=== PATIENT | female | born 1975 | race Caucasian/White ===

== ENCOUNTER 2016-11-07 14:31 | Inpatient (IN) ==
[2016-11-07] MEDS ORDERED: Aspirin 81 MG TAB.CHEW PO ONE (14:52)
[2016-11-07] MEDS ORDERED: Ondansetron 4 MG/2 ML VIAL IVP ONE (15:01)
[2016-11-07 15:35] LABS: Basophils # 0.1 K/mcL (0.0-0.2); Basophils % 0.5 %; Eosinophils # 0.2 K/mcL (0.0-0.6); Eosinophils % 2.2 %; Hematocrit 41.9 % (35.3-44.9); Hemoglobin 13.9 g/dL (11.5-15.4); Immature Granulocytes % 0.8 % (0-4); Lymphocytes % 27.9 %; Mean Corpuscular HGB Conc 33.2 g/dL (31.6-35.5); Mean Corpuscular Hemoglobin 27.4 pg (28.0-33.3); Mean Corpuscular Volume 82.5 fL (83.0-100.0); Mean Platelet Volume 9.6 fL (9.4-12.4); Monocytes # 0.5 K/mcL (0.0-1.3); Monocytes % 4.4 %; Neutrophils # 6.9 K/mcL (1.6-8.9); Platelet Count 308 K/mcL (140-400); Red Blood Count 5.08 M/mcL (3.82-4.97); Red Cell Distribution Width 13.4 % (11.5-14.5); Segmented Neutrophils % 64.2 %
[2016-11-07] MEDS ORDERED: 0.9 % Sodium Chloride 2,000 ML ONE ×2 (16:10→16:38)
[2016-11-07] MEDS: Nitroglycerin 0.4 MG TAB.SUBL SL PRN ×3 (16:11→16:22)
[2016-11-07 16:16] LABS: BUN/Creatinine Ratio 16 (6-26); Blood Urea Nitrogen 10 mg/dL (7-20); Calcium 9.2 mg/dL (8.6-10.8); Carbon Dioxide 21 mEq/L (19-29); Chloride 103 mEq/L (98-109); Glucose 97 mg/dL (70-99); Osmolality,Calculated 277 (280-300); Potassium 4.1 mEq/L (3.5-4.5); Sodium 134 mEq/L (136-145); eGFR For African Americans > 60 (> 60); eGFR For Non-African Americans > 60 (> 60)
--- NOTE | 2016-11-07 16:18 | Emergency Department Note ---
Disposition Clinical Impression: ST elevation myocardial infarction (STEMI) Qualifiers: Involved coronary artery: unspecified coronary artery Qualified Code(s): I21.3 - ST elevation (STEMI) myocardial infarction of unspecified site Disposition: Admitted As Inpatient Condition: Critical Time of Disposition: 17:17 Chest Pain HPI - General Chief Complaint: ED Chest Pain Stated Complaint: chest pain Time Seen by Provider: 11/07/16 14:46 Source: EMS Vital Signs Reviewed: Yes Nursing Notes Reviewed: Yes - History of Present Illness HPI Narrative: Patient is a 41-year-old female who presents to [facility] ED with the chief complaint of chest pain. States her symptoms started approximately 1 hour prior to arrival around 1:45pm. This lasted for 10 minutes. Describes this as a substernal to right sided chest pressure that radiated into her right neck and right shoulder. Also had some nausea and diaphoresis. Denies any prior symptoms of this. She is otherwise healthy and is not on any medications. Patient states her father had a massive heart attack at age 49. Pt complaint: chest pain Onset (ago): hour(s) Duration: now resolved Pain Location: substernal Severity: severe Severity scale (1-10): 10 Quality: heaviness Pain Radiation: RUE, neck Improves with: nothing Worsens with: nothing Associated symptoms: Reports: nausea, diaphoresis, dyspnea Treatments prior to arrival chest pain: none - Related Data Home Medications Medication Instructions Recorded Confirmed No Known Home Drugs 11/07/16 11/07/16 Allergies Allergy/AdvReac Type Severity Reaction Status Date / Time codeine Allergy Swelling Verified 11/07/16 16:18 of Lip/Tongue/Throat Sulfa (Sulfonamide Allergy Swelling Verified 11/07/16 16:18 Antibiotics) of Lip/Tongue/Throat All systems ED: reviewed and negative except as stated. Chest Pain PMH - Past Medical History Medical history: Reports: no medical history Psychiatric history: Reports: no psych history - Social History Smoking Status: Never smoker Alcohol use: Reports: none Drug use: Reports: marijuana Physical Exam - General Limitations: no limitations General appearance: alert - Head Head exam: atraumatic, normocephalic, normal inspection - Eye Eye exam: Present: normal appearance, PERRL, EOMI - ENT ENT exam: normal exam, normal oropharynx, mucous membranes moist - Neck Neck exam: Present: normal inspection, full ROM, trachea midline - Chest Chest inspection: Present: normal inspection, symmetric chest wall rise - Respiratory Respiratory exam: Present: normal lung sounds bilaterally - Cardiovascular Cardiovascular exam: Present: regular rate, normal rhythm, normal heart sounds - Abdominal Exam Abdominal exam: Present: soft, Non-Tender. Absent: tenderness, distention, guarding, rebound, rigidity - Extremities Exam Extremities exam: Present: normal inspection, full ROM. Absent: tenderness, pedal edema - Back Exam Back exam: Present: normal inspection, full ROM. Absent: tenderness - Neurological Exam Neurological exam: Present: alert, oriented X3 - Psychiatric Psychiatric exam: Present: normal affect, normal mood - Skin Skin exam: Present: warm, dry, intact, normal color Course Course Narrative: Patient seen and examined. Chest pressure that is currently resolved. This is concerning for cardiac etiology as she also had episode of nausea and diaphoresis with this. It had radiated up into her neck and into her shoulder. Cardiac workup initiated. - Reevaluation(s) Reevaluation #1: Patient's troponin elevated at 0.06. Patient started developing chest pain again at 1604. We ordered a repeat EKG. She does appear to have some newer ST elevation in V1 and V2 as well as depression in the inferior leads. Patient is diaphoretic. STEMI alert was activated at 1608. I spoke with the interventionalist who had me send him the EKGs. Time: 16:23 Vital Signs Temperature 97.4 F L 11/07/16 14:35 Pulse Rate 70 11/07/16 14:35 Respiratory Rate 12 11/07/16 14:35 Blood Pressure 150/94 11/07/16 14:35 O2 Sat by Pulse Oximetry 96 11/07/16 14:35 Temperature 97.4 F L 11/07/16 14:35 Pulse Rate 63 11/07/16 16:51 Respiratory Rate 14 11/07/16 16:54 Blood Pressure 105/90 11/07/16 16:54 O2 Sat by Pulse Oximetry 98 11/07/16 16:51 Oxygen Delivery Oxygen Delivery Nasal Cannula Chest Pain - Medical Records Medical records reviewed: Yes I reviewed the patient's medical records. - Lab Data Lab results reviewed: Yes I reviewed the patient's lab results. Result diagrams: 11/07/16 15:10 11/07/16 15:56 Lab Results 11/07/16 11/07/16 11/07/16 Range/Units 15:10 15:10 15:10 WBC 10.8 (4.3-11.1) K/mcL RBC 5.08 H (3.82-4.97) M/mcL Hgb 13.9 (11.5-15.4) g/dL Hct 41.9 (35.3-44.9) % MCV 82.5 L (83.0-100.0) fL MCH 27.4 L (28.0-33.3) pg MCHC 33.2 (31.6-35.5) g/dL RDW 13.4 (11.5-14.5) % Plt Count 308 (140-400) K/mcL MPV 9.6 (9.4-12.4) fL Immature Gran % 0.8 (0-4) % Seg Neutrophils % 64.2 % Lymphocytes % 27.9 % Monocytes % 4.4 % Eosinophils % 2.2 % Basophils % 0.5 % Neutrophils # 6.9 (1.6-8.9) K/mcL Lymphocytes # 3.0 (0.6-4.6) K/mcL Monocytes # 0.5 (0.0-1.3) K/mcL Eosinophils # 0.2 (0.0-0.6) K/mcL Basophils # 0.1 (0.0-0.2) K/mcL PT (9.4-12.1) Seconds INR APTT (26.0-36.0) Seconds D-Dimer 357 (0-500) ng/mLFEU Sodium (136-145) mEq/L Potassium (3.5-4.5) mEq/L Chloride (98-109) mEq/L Carbon Dioxide (19-29) mEq/L BUN (7-20) mg/dL Creatinine (0.57-1.11) mg/dL Est GFR ( Amer) (> 60) Est GFR (Non-Af Amer) (> 60) BUN/Creatinine Ratio (6-26) Glucose (70-99) mg/dL Calculated Osmolality (280-300) Calcium (8.6-10.8) mg/dL Magnesium (1.6-2.6) mg/dL Troponin I 0.06 H* (0-0.03) ng/mL Specimen Rejected 11/07/16 11/07/16 11/07/16 Range/Units 15:10 15:42 15:56 WBC (4.3-11.1) K/mcL RBC (3.82-4.97) M/mcL Hgb (11.5-15.4) g/dL Hct (35.3-44.9) % MCV (83.0-100.0) fL MCH (28.0-33.3) pg MCHC (31.6-35.5) g/dL RDW (11.5-14.5) % Plt Count (140-400) K/mcL MPV (9.4-12.4) fL Immature Gran % (0-4) % Seg Neutrophils % % Lymphocytes % % Monocytes % % Eosinophils % % Basophils % % Neutrophils # (1.6-8.9) K/mcL Lymphocytes # (0.6-4.6) K/mcL Monocytes # (0.0-1.3) K/mcL Eosinophils # (0.0-0.6) K/mcL Basophils # (0.0-0.2) K/mcL PT 10.2 (9.4-12.1) Seconds INR 1.0 APTT 26.6 (26.0-36.0) Seconds D-Dimer (0-500) ng/mLFEU Sodium 134 L (136-145) mEq/L Potassium 4.1 (3.5-4.5) mEq/L Chloride 103 (98-109) mEq/L Carbon Dioxide 21 (19-29) mEq/L BUN 10 (7-20) mg/dL Creatinine 0.61 (0.57-1.11) mg/dL Est GFR ( Amer) > 60 (> 60) Est GFR (Non-Af Amer) > 60 (> 60) BUN/Creatinine Ratio 16 (6-26) Glucose 97 (70-99) mg/dL Calculated Osmolality 277 L (280-300) Calcium 9.2 (8.6-10.8) mg/dL Magnesium 1.8 (1.6-2.6) mg/dL Troponin I (0-0.03) ng/mL Specimen Rejected Hemolyzed - Radiology Data Radiology results reviewed: Yes I reviewed the patient's radiology results. - EKG Data EKG attestation: Yes I reviewed and interpreted this EKG. EKG results narrative: EKG done at 1444 shows sinus bradycardia with a rate of [address] elevation or depression. There is an inverted T-wave in lead 3. EKG done at 1605 shows normal sinus rhythm with a rate of 90 bpm. There are occasional PVCs. ST elevation noted at V1 and V2. There is also some ST depression in leads 2, 3, aVF. Heart Score - Score History: Highly Suspicious EKG: Significant ST-Depression Age: Less than 45 Risk Factors: 1-2 risk factors Troponin: 1-3x normal limit HEART Score Total: 6 Critical Care Time Critical Care Time: Yes Total Critical Care Time: 35 Attestation: Critical care time to manage patient's chest pain, and developing STEMI was 35 minutes. This was exclusive of any billable procedures. Attestation Statement - Attestation Attestation: Patient was seen with resident physician. I reviewed the history, physical, assessment and plan, and agree with the findings. I also personally evaluated this patient and had [id number] time with this patient. 41-year-old female presents emergency Department with 10 minute episode of chest pain nausea vomiting and diaphoresis. Patient states that she developed right-sided chest pain radiating into her neck into her shoulder was a pressure-like sensation was associated with diaphoresis that lasted approximately 10 minutes and resolved spontaneously. At time of initial evaluation patient states that she was feeling okay and the pain had dissipated. She has no significant risk factors other than having a family history of heart disease and her father had a heart attack in a relatively young age. She is not complaining of any shortness of breath or abdominal pain at this time. On examination ENT is unremarkable heart and lungs are normal chest wall is nontender. Abdomen is soft and nontender extremities showed no abnormalities. A chest pain workup was begun with an initial EKG showing no acute changes. Approximately an hour and 30 minutes after patient's arrival lab called to notify us that her troponin was positive at 0.06, and almost at the same time the patient developed another episode of right-sided chest pain associated with diaphoresis and nausea. A repeat EKG was taken immediately and was found have ST segment elevation in the anterior leads with reciprocal depression this was new from the EKG we had just taken an hour or so prior. Based on the patient's symptomatology description of pain and EKG changes STEMI activation was initiated. Interventional cardiology was notified. Patient had been given aspirin on arrival they did not recommend additional medications at this time we will the patient was in the emergency department. She was given nitroglycerin to help with her chest pain and it was helping a little bit. Patient was taken to the [facility] for definitive management. I agree with the resident physician assessment and plan. Critical care time for this patient was 35 minutes.
[2016-11-07] MEDS ORDERED: *HR* Midazolam HCl 2 MG/2 ML VIAL ONE (16:37)
[2016-11-07] MEDS ORDERED: *HR* Heparin 10,000 UNIT/10 ML VIAL ONE (16:38)
[2016-11-07] MEDS ORDERED: Nitroglycerin 1,000 MCG/10 ML VIAL IV ONE (16:38)
[2016-11-07] MEDS ORDERED: *HR* FentaNYL (PF) 100 MCG/2 ML VIAL ONE (16:38)
[2016-11-07] MEDS ORDERED: Heparin 1,000 UNITS/500 mL NS 500 ML ONE (16:38)
[2016-11-07] MEDS ORDERED: Verapamil 5 MG/2 ML VIAL ONE (16:39)
[2016-11-07 16:42] LABS: Prothrombin Time 10.2 Seconds (9.4-12.1)
[2016-11-07 16:44] LABS: Activated Partial Thrombo Time 26.6 Seconds (26.0-36.0)
[2016-11-07 16:45] LABS: Magnesium 1.8 mg/dL (1.6-2.6)
[2016-11-07] MEDS ORDERED: 0.9 % Sodium Chloride 250 ML ONE (17:22)
[2016-11-07] MEDS ORDERED: Ondansetron 4 MG/2 ML VIAL IVP PRN (17:56)
[2016-11-07] MEDS ORDERED: Abciximab 9 MG in 0.9 % Sodium Chloride 250 ML IVC SCH (18:00)
--- NOTE | 2016-11-07 18:05 | Cardiology History & Physical ---
Date of Encounter: 11/07/16 Time of Encounter: 17:00 Assessment and Plan (1) ST elevation myocardial infarction (STEMI) Current Visit: Yes Status: Acute Successful PCI of proximal to mid LAD with a single drug-eluting stent Serial cardiac enzymes Two-dimensional echo tomorrow Aspirin and Plavix Start JOSE inhibitor and beta godfrey therapy Start statin Patient needs education regarding lifestyle modification Qualifiers: Involved coronary artery: LAD coronary artery Qualified Code(s): I21.02 - ST elevation (STEMI) myocardial infarction involving left anterior descending coronary artery History of Present Illness Chief complaint: Chest pain HPI: Ms. Nuñez is a 41 year old female who has a strong family history of coronary artery disease with a father who had his first heart attack at age 23 and then subsequently of another heart attack at age 49. Other than family history , the patient does have a history of obesity and marijuana use, but does not carry a diagnosis of hypertension, hyperlipidemia, or diabetes mellitus. She states that she was in her usual state of health until this morning. She received a phone call that her grandkids were in town, and she states she needed to get her place clean. She immediately developed severe retrosternal chest pain graded 10 out of 10 associated with diaphoresis nausea and dyspnea. The pain went to the base of the neck, but was not radiating down the arm. Given her family history, she knew that she should go immediately to the emergency room. Her first EKG reportedly showed nonspecific changes, and she was pain-free. An hour so after her admission to the ER, she had recurrence of chest pain, and this time an EKG showed new changes with ST elevation in V1 and V2 with diffuse ST changes and T-wave inversion. These changes were different from the EKG that been obtained at admission. Based on this, the cardiac catheterization lab was mobilized. Past Med Surg Social Fam HX - Past Medical History Medical history: no medical history Psychiatric history: no psych history - Past Surgical History Surgical History: non-contributory - Social History Smoking Status: Never smoker Smokeless Tobacco Status: No Alcohol use: none Drug use: marijuana - Family History Father Hx Family Cardiac Disorders: Yes (MS at 23, at 49 from MS) Medications and Allergies No Known Home Drugs 11/07/16 [History] Allergies codeine Allergy (Verified 11/07/16 16:18) Swelling of Lip/Tongue/Throat Sulfa (Sulfonamide Antibiotics) Allergy (Verified 11/07/16 16:18) Swelling of Lip/Tongue/Throat All Systems Review: A 10-system review of systems was performed and is negative for pertinent findings except as documented above in the HPI. - Cardiovascular Cardiovascular: as per HPI, diaphoresis, dyspnea at rest, radiating jaw, neck or arm pain - Respiratory Respiratory: dyspnea Physical Examination Vital Signs, Last 4 Hours Pulse Resp BP Pulse Ox 11/07/16 16:54 14 105/90 11/07/16 16:51 63 14 98 11/07/16 16:44 56 14 134/95 98 11/07/16 16:37 70 14 126/110 98 11/07/16 16:33 68 16 121/78 96 11/07/16 16:27 72 14 129/116 95 General: Conversant, No Apparent Distress HEENT: Atraumatic, Normocephaly, Mucus Membranes Moist Neck: No JVD, Normal carotid pulses Cardiac: Reg Rate and Rhythm, Normal S1 and S2, No Murmur Lungs: Normal Breath Sounds, No Wheeze, Rales, Rhonchi Neuro: Alert and responsive, No focal deficits noted Abdomen: Soft, Non-Tender Musculoskeletal: No Chest Wall Tenderness Extremities: No Clubbing, No Cyanosis, No Edema, Normal Pulses Results 11/07/16 15:10 11/07/16 15:56
--- NOTE | 2016-11-07 18:07 | Invasive Diagnostic Lab Proc ---
Name: Kenya Nuñez Date of Study: 11/07/2016 Date: 1975 Ht: 61.8in Medical Record#: [id number] Age: 41 Wt: 209.44lb Gender: Female BSA: 1.95 Order #: [id number] BMI: 38.54 Physicians Procedure Physician: Juanita Osman MD Referring MD: Referring MD: Staff Name Position Time In [facility] RT (R) Monitor 05:06 PM Meggan Gomez RT Scrub 05:06 PM Che Castillo RN Process Safety Manager 05:06 PM Indications Indication STEMI Procedures Performed Procedure PRQ CARD REVASC GA 1 VSL L HRT ARTERY/VENTRICLE ANGIO Pre-Procedure Checklist Informed consent is complete signed and on chart. H\\T\\P is on chart. ID band is on and ID verified with patient. Patient NPO for procedure The procedure was described for the patient and questions were answered. Blood Pressure: 126/92 ECG is on chart. Rhythm: NSR Plan of Care Patient will tolerate the procedure without complications. Adequate level of comfort will be maintained. Hemodynamics will remain stable Patient will recover from procedure without complications. Respiratory function will be maintained. Cardiac rhythm will remain stable. Patient temperature will be maintained. Patient and/or family have verbalized understanding of the procedure. Patient Education Chief Complaint/Reason for Test: Cardiac Cath Developmental Category: Adult (18-64 years) Developmentally Appropriate for Age: Yes Learning Barriers: None Education Needs: Procedure Education Method: Verbal Information Taught: Cardiac Cath Educational Evaluation: Able to repeat information Intravenous Access Time IV Size Location DC'd Fluid/Drip Rate Units RN 05:10 PM 18g 1 1" Patent On Arrival Rt Antecubital Che Castillo RN 18g 1 1/4" Patent On Arrival Lt Antecubital 0.9NaCl 25 ml/hr Che Castillo RN Allergies SULFA (sulfonamide) codeine Acetaminophen Oxycodone CODEINE, PERCOCET Vital Signs Time BP (mmHg) HR (bpm) O2 Sat. RR (bpm) LOC 05:07 PM / % 5 = Fully awake and oriented or at pre-proc level 05:07 PM / % 4 = Oriented but drowsy 05:22 PM / % 4 = Oriented but drowsy 05:37 PM / % 4 = Oriented but drowsy 05:05 PM 126 / 92 67 100 % 12 05:10 PM 120 / 76 58 100 % 18 05:15 PM 124 / 67 73 99 % 26 05:20 PM 130 / 64 67 100 % 20 05:26 PM 162 / 107 99 100 % 21 05:30 PM 170 / 107 75 99 % 7 05:37 PM 163 / 82 66 % 18 05:41 PM 146 / 85 65 % 17 05:45 PM 138 / 69 62 100 % 20 Procedural Medications Time Medication Dose Units Method Given By 05:06 PM Oxygen 2 L/min nasal cannula Che Castillo RN 05:06 PM Versed 2 mg Intravenous Che Castillo RN 05:07 PM Fentanyl 50 mcg Intravenous Che Castillo RN 05:07 PM Lidocaine 2% 2 ml Subcutaneous Juanita Osman MD 05:09 PM Lidocaine 2% 1 ml Subcutaneous Juanita Osman MD 05:12 PM 05:21 PM 05:21 PM Reopro Bolus: 11 ml Intracoronary juanita osman md 05:31 PM Nitroglycerin 200 mcg Intracoronary juanita osman md 05:34 PM Fentanyl 50 mcg Intravenous Che Castillo RN 05:37 PM Reopro 9mg/250ml D5W: 14 ml Intravenous Che Castillo RN 05:41 PM Nitroglycerin 200 mcg Intracoronary juanita osman md 05:47 PM Plavix 600 mg Orally Che Castillo RN ASA Classification: CLASS II- Mild systemic disease (i.e. well-controlled diabetes, hypertension, asthma, cigarette smoking) Pantera Score Preprocedure Postprocedure Activity 2- Moves 4 extremities sustained head lift Activity 2- Moves 4 extremities sustained head lift Circulation 2- SBP +/= 20 points of pre-anesthetic level Circulation 2- SBP +/= 20 points of pre-anesthetic level Consciousness 2- Awake and alert oriented x 3 Consciousness 2- Awake and alert oriented x 3 O2 Saturation 2- Able to maintain O2 satruation of 92% on room air O2 Saturation 2- Able to maintain O2 satruation of 92% on room air Respiratory 2- Able to deep breathe and cough well Respiratory 2- Able to deep breathe and cough well Total Score 10 Total Score 10 Contrast Agent: Isovue Diagnostic Contrast: 169 ml Total Contrast: 169 ml Fluoro Dose: 1109 mGy Activated Clotting Time Time Seconds to Clot 05:37 PM 393 Procedure Log Time Note Enter By 04:55 PM 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 at 16:55 tsites 05:05 PM Vitals capture started with the following parameters, Patient=Adult, Interval=5 min, Initial Kzmbcsxr=653 mmHg, Deflation Rate=5 mmHg, Cuff placed on Left Arm 05:05 PM CathStat 05:05 PM HR=67 bpm, BVPP=066/92 mmhg, SbF7=354.0 %, Resp=12 B/min 05:06 PM Morena Hobbs RT (R) Position: Monitor Time in: 17: tsites 05:06 PM Meggan Gomez RT Position: Scrub Time in: 17: tsites 05:06 PM Che Castillo RN Position: Process Safety Manager Time in: 17: tsites 05:06 PM Patient charges- Angio tray pack, Navilyst 3mm J, Pulse Oximetry and ACIST tubing and transducer tsites 05:06 PM Case Delayed No tsites 05:06 PM Physician arrived 17: tsites 05: PM Meet and greet completed tsites 05: PM Sign in performed according to hospital policy. tsites 05:06 PM Procedure start 17: tsites 05: PM Time: 17:06 Oxygen on at 2 L/min per nasal cannula by Che Castillo RN tsites 05: PM Hair removed from procedure site in procedure lab using clippers. Right wrist and groin prepped with Chloraprep by Morena Hobbs (R) then patient draped. Skin intact. tsites 05: PM Time: 17:06 Versed 2 mg Intravenous Given by Che Castillo RN tsites : PM Time out performed according to hospital policy tsites : PM Time: 17:07 Fentanyl 50 mcg Intravenous Given by Che Castillo RN tsites : PM Time: 17:07 Patient comfortable and pain free: Yes tsites 05: PM Time: 17:07LOC: 5 = Fully awake and oriented or at pre-proc level tsites 05:07 PM Clinical Presentation: STEMI or equivalent tsites 05:07 PM Time: 17:07 2 ml Lidocaine 2% to right radial Subcutaneous Given by Juanita Osman MD tsites 05:09 PM Unsuccessful access attempt # 1 into the right Radial artery. Manual pressure applied to achieve hemostasis.. tsites 05:09 PM Time: 17:09 1 ml Lidocaine 2% to right radial Subcutaneous Given by Juanita Osman MD tsites 05:10 PM HR=58 bpm, VTRS=412/76 mmhg, RvQ3=722 %, Resp=18 B/min 05:10 PM Access obtained by percutaneous puncture. 5Fr 10cm Terumo Glidesheath sheath placed in right Radial artery. [id number] tsites 05:13 PM Time: 17:12 Heparin 4000 units Intravenous Given by juanita omsan md tsites 05:13 PM 0.035 260cm Navilyst 3mmJ wire [id number] tsites 05:13 PM 5Fr TIG catheter inserted over the wire [facility] tsites 05:14 PM Pressure channel 2 zeroed. 05:14 PM Recorded ECG: HR=66 Condition=Condition 1 05:14 PM Wire removed tsites 05:15 PM RCA angiography performed in multiple views. tsites 05:15 PM HR=73 bpm, TSZJ=359/67 mmhg, SpO2=99.0 %, Resp=26 B/min 05:17 PM LCA angiography performed in multiple views. tsites 05:17 PM Catheter removed tsites 05:19 PM Recorded Pressure: LV, HR=69, Condition=Condition 1 (Left Ventricle) LV 127/12/24 05:20 PM 5Fr Pigtail catheter inserted over the wire [facility] tsites 05:20 PM Catheter selectively placed in left ventricle tsites 05:20 PM Recorded Pressure: LV, Ao, HR=86, Condition=Condition 1 (Left Ventricle) LV 117/26/36, (Aorta) Ao 119/44/95 05:20 PM HR=67 bpm, GRXY=492/64 mmhg, CoX1=840.0 %, Resp=20 B/min 05:20 PM Bolus angiogram of left Ventricle complete: 10 ml/sec for a total of 30 mls tsites 05:21 PM Catheter removed tsites 05:21 PM Coronary Dominance: right tsites 05:21 PM PCI Status Emergency tsites 05:21 PM PCI Indication: Immediate PCI for STEMI tsites 05:21 PM Time: 17:21 Heparin 2000 units Intravenous Given by Che Castillo RN tsites 05:22 PM Time: 17:07 Patient comfortable and pain free: Yes tsites 05:22 PM Time: 17:07LOC: 4 = Oriented but drowsy tsites 05:23 PM PCI lesion in Proximal LAD. Pre Stenosis: 90 Pre KARTHIK Flow: tsites 05:23 PM 6Fr JL3.5 Runway guide catheter was used to cannulate the PCI vessel successfully. reused? No tsites 05:23 PM .014 Prowater 182cm guide wire across target lesion- successful. reused? No tsites 05:23 PM Inflation device was opened. tsites 05:26 PM 2.0 mm x 15 mm Emerge Monorail balloon across target lesion- successful. reused? No tsites 05:26 PM Balloon inflated @ 10 javier for 12 seconds tsites 05:26 PM HR=99 bpm, CRBY=344/107 mmhg, TwQ4=995.0 %, Resp=21 B/min 05:28 PM Balloon inflated @ 10 javier for 15 seconds tsites 05:29 PM Time: 17:21 Reopro Bolus: 11 ml Intracoronary Given by juanita osman md Rubio pump tsites 05:30 PM HR=75 bpm, EMGC=612/107 mmhg, SpO2=99 %, Resp=7 B/min 05:31 PM Time: 17:31 Nitroglycerin 200 mcg Intracoronary Given by juanita osman md tsites 05:31 PM Recorded Pressure: Ao, HR=71, Condition=Condition 1 (Aorta) Ao 171/72/128 05:32 PM 3.0 mm x 20 mm Emerge Monorail balloon across target lesion- successful. reused? No tsites 05:34 PM Balloon inflated @ 15 javier for 20 seconds tsites 05:34 PM Time: 17:34 Fentanyl 50 mcg Intravenous Given by Che Castillo RN tsites 05:35 PM Balloon catheter removed intact. tsites 05:35 PM 3.5mm x 24mm Synergy bioabsorbable stent across target lesion- successful Lot #[id number] tsites 05:37 PM Stent deployed @ 12 javier for 8 seconds tsites 05:37 PM Time: 17:22LOC: 4 = Oriented but drowsy tsites 05:37 PM At 17:37 the ACT was 393 seconds. tsites 05:37 PM Stent delivery system removed intact. tsites 05:37 PM HR=66 bpm, SZSL=621/82 mmhg, Resp=18 B/min 05:38 PM Time: 17:37 Reopro 9mg/250ml D5W: 14 ml Intravenous Given by Che Castillo RN Rubio pump tsites 05:40 PM 3.5 mm x 20mm NC Emerge balloon across target lesion- successful. reused? No tsites 05:40 PM Recorded Pressure: Ao, HR=68, Condition=Condition 1 (Aorta) Ao 125/80/100 05:41 PM HR=65 bpm, VPRK=867/85 mmhg, Resp=17 B/min 05:41 PM Balloon inflated @ 12 javier for 10 seconds tsites 05:42 PM Time: 17:41 Nitroglycerin 200 mcg Intracoronary Given by juanita osman md tsites 05:44 PM Recorded Pressure: Ao, HR=70, Condition=Condition 1 (Aorta) Ao 123/69/92 05:44 PM Guide wire removed intact. tsites 05:44 PM Lesion found in Mid LAD. Pre Stenosis: 50 Pre KARTHIK Flow: tsites 05:45 PM Lesion found in Mid RCA. Pre Stenosis: 40 Pre KARTHIK Flow: tsites 05:45 PM HR=62 bpm, PMAJ=210/69 mmhg, TsS5=298.0 %, Resp=20 B/min 05:47 PM Time: 17:47 Plavix 600 mg Orally Given by Che Castillo RN tsites 05:48 PM Procedure completed at 17:48 tsites 05:48 PM Sign out completed: Radiation Dose 1109 mGy Fluoro Time: 8.0 Isovue 370 - 200ml contrast 169 ml given by Juanita Osman MD. Complications: NoneConfirmed administered medications: Yes tsites 05:48 PM Isovue 370 - 500ml,1 Bottle(s) used. tsites 05:48 PM Arterial sheath pulled, Vasc Band closure device used and was Successful S/N. tsites 05:48 PM 15 ml air in Vasc Band. tsites 05:49 PM Post ECG NSR tsites 05:49 PM Post Blood Pressure 138/69 tsites 05:49 PM 17:49 Post Pulses Rt Radial 1+ tsites 05:49 PM Information taught Cardiac Cath, PCI, and Vasc Band tsites 05:49 PM Education needs Procedure, Plan of Care, and Responsibilities of Patient in Care tsites 05:49 PM Learning barriers :None tsites 05:49 PM Education Methods Verbal tsites 05:49 PM Education evaluation Able to repeat information tsites 05:49 PM Site status No bleeding/hematoma - Rt Wrist as reported by Meggan Gomez RT at 17:49 tsites 05:50 PM Plavix, Effient or Brilinta given Yes tsites 05:50 PM Delay to floor No tsites 05:50 PM Family placed in consult room. tsites 05:50 PM Vitals capture stopped. 05:53 PM Time: 17:37LOC: 4 = Oriented but drowsy tsites 05:53 PM Complications: None tsites 06:00 PM Report given to victorina CORTES Pt taken to ICU Room #8. 18:00 tsites 06:00 PM Delay to floor No tsites 06:02 PM Patient out of room: 18:02 tsites Complications Complication None None Hemodynamics Pressures Site Systolic/A Wave Diastolic/V Wave Mean LV 127 12 24 LV 117 26 36 AO 119 44 95 AO 171 72 128 AO 125 80 100 AO 123 69 92 Post Procedure Information Blood Pressure: 138/69 mmHg Rhythm: NSR Post procedural instructions were given Closure Device Time Device Success/Fail 11/07/2016 5:54:00 PM Mechanical Compression Successful Site Checks Time Location Status Staff Sheath In? Note 05:49 PM Rt Wrist No bleeding/hematoma Meggan Gomez RT Pulses Time Site Pre-Procedure Post-Procedure Note 11/07/2016 5:10:00 PM Bilateral DP \\T\\ PT 2+ Bilateral radial 2+ 5:49:00 PM Rt Radial 1+ Updated by Morena Faby RT (R) on 11/07/2016 6:01:23 PM Morena Faby RT electronically signed on 11/07/2016 6:01:43 PM with status of Final
--- NOTE | 2016-11-07 18:20 | Invasive Diagnostic Lab ---
Name: Kenya Nuñez Date of Study: 11/07/2016 Date: 1975 Ht: 157.0 cm /61.8 in Medical Record#: [id number] Age: 41 Wt: 95. kg / 209.44 lb Account/Order#: [id number] Gender: Female BSA: 1.95 Order #: [id number] Fluoro Dose: 1109 mGy BMI: 38.54 Procedure Physician: Frantz Osman MD Referring MD: Referring MD: Procedures Performed: PCI of Acute NE LEFT HEART CATH Indications: STEMI Impressions: There is severe one vessel coronary artery disease. The left ventricle has mild hypokinesis along anterolateral wall with EF 45% Patient had successful PTCA/Drug-Eluting Stent placement in the proximal LAD. Recommendations: Optimal medical therapy of patient's disease. Aggressive risk factor modification. History/Risk Factors: stemi Family History of CAD Procedure Access obtained in the right Radial artery by percutaneous puncture Patient had successful PTCA/Drug-Eluting Stent placement in the proximal LAD. Complications: None, None Contrast: Isovue 169ml Closure Device: Mechanical Compression Hemodynamics: Pressures Site Systolic/ A Wave Diastolic/ V Wave End Diastolic/ Mean HR LV 127 12 24 69 LV 117 26 36 99 AO 119 44 95 72 AO 171 72 128 71 AO 125 80 100 68 AO 123 69 92 70 LV Ventriculography Ejection Method: LV Gram Ejection Fraction: 45% Wall Motion: VILLA Anterobasal Normal Anterolateral Mild Hypokinesis Apical: Normal Inferoapical Normal Inferobasal Normal Coronary Dominance: right Lesion Findings/Interventions * Left Main Coronary Artery The LMCA is angiographically free of disease. * Left Anterior Descending There is a 22 mm long, 99% stenosis in the Proximal LAD. The lesion has a KARTHIK flow of 2 and has thrombus present. An intervention was performed on the Proximal LAD with a final stenosis of 0%. There were no lesion complications. The final KARTHIK flow was 3. There is a 50% stenosis in the Mid LAD. * Circumflex The Circumflex is angiographically free of disease. The 1st Marginal is angiographically free of disease. * Right Coronary Artery There is a 40% stenosis in the Mid RCA. Interventional Device(s) Vessel Segment Type Name Diameter (mm) Length (mm) Proximal LAD balloon Emerge Monorail 2 15 Proximal LAD balloon Emerge Monorail 3 20 Proximal LAD bioabsorbable stent Synergy 3.5 24 Proximal LAD balloon NC Emerge 3.5 20 Updated by RT Radha (R) on 11/07/2016 6:13:43 PM Frnatz Osman MD electronically signed on 11/07/2016 6:16:39 PM with status of Final
[2016-11-08 03:22] LABS: Basophils % 0.3 %; Eosinophils # 0.3 K/mcL (0.0-0.6); Eosinophils % 2.2 %; Hematocrit 36.3 % (35.3-44.9); Hemoglobin 11.9 g/dL (11.5-15.4); Immature Granulocytes % 0.8 % (0-4); Lymphocytes # 4.3 K/mcL (0.6-4.6); Lymphocytes % 38.5 %; Mean Corpuscular HGB Conc 32.8 g/dL (31.6-35.5); Mean Corpuscular Hemoglobin 26.9 pg (28.0-33.3); Mean Corpuscular Volume 81.9 fL (83.0-100.0); Mean Platelet Volume 9.1 fL (9.4-12.4); Monocytes # 0.6 K/mcL (0.0-1.3); Monocytes % 5.4 %; Platelet Count 294 K/mcL (140-400); Red Blood Count 4.43 M/mcL (3.82-4.97); Red Cell Distribution Width 13.5 % (11.5-14.5); Segmented Neutrophils % 52.8 %
[2016-11-08 03:31] LABS: Hemoglobin A1C 5.5 %
[2016-11-08 03:36] LABS: Alanine Aminotransferase 10 Units/L (0-55); Albumin 2.9 g/dL (3.5-5.0); Albumin/Globulin Ratio 0.7 (1.1-2.2); Alkaline Phosphatase 70 Units/L (38-126); Aspartate Amino Transferase 11 Units/L (5-34); BUN/Creatinine Ratio 15 (6-26); Bilirubin,Direct 0.1 mg/dL (0.0-0.5); Bilirubin,Indirect 0.1 mg/dL (0.0-1.2); Bilirubin,Total 0.2 mg/dL (0.2-1.2); Blood Urea Nitrogen 10 mg/dL (7-20); Calcium 8.7 mg/dL (8.6-10.8); Carbon Dioxide 22 mEq/L (19-29); Chloride 105 mEq/L (98-109); Chol/HDL Ratio 10.3 (0-4.9); Cholesterol 341 mg/dL (< 200); Globulin 3.9 g/dL (2.4-3.5); Glucose 96 mg/dL (70-99); HDL Cholesterol 33 mg/dL (40-59); LDL Cholesterol,Calculated 248 mg/dL (0-99); Osmolality,Calculated 283 (280-300); Potassium 3.7 mEq/L (3.5-4.5); Sodium 137 mEq/L (136-145); Total Protein 6.8 g/dL (6.0-8.3); Triglycerides 298 mg/dL (< 150); eGFR For African Americans > 60 (> 60); eGFR For Non-African Americans > 60 (> 60)
[2016-11-08 03:57] LABS: Thyroid Stimulating Hormone 2.422 mcIU/mL (0.350-4.840)
[2016-11-08] MEDS ORDERED: Aspirin 81 MG TAB.CHEW PO SCH (09:00)
--- NOTE | 2016-11-08 09:24 | Cardiology Progress Note ---
Date of Encounter: 11/08/16 Time of Encounter: 09:22 Assessment and Plan (1) ST elevation myocardial infarction (STEMI) Current Visit: Yes Status: Acute Successful PCI of proximal to mid LAD with a single drug-eluting stent. Patient is in normal sinus rhythm without any ST changes this morning. Patient is in no acute distress. Plan: - Patient to continue on daily aspirin 81 mg, atorvastatin 40 mg by mouth at bedtime, Coreg 3.125 mg by mouth twice a day, Plavix 75 mg by mouth daily. - Dietary modifications and adequate exercise has been discussed with the patient. - Patient to be transferred from the ICU to general medical floor - Patient will follow-up with cardiology post discharge. - Echocardiogram scheduled for today with results pending. Qualifiers: Involved coronary artery: LAD coronary artery Qualified Code(s): I21.02 - ST elevation (STEMI) myocardial infarction involving left anterior descending coronary artery (2) Hyperlipidemia Current Visit: Yes Status: Acute Patient admitted for first STEMI without history of coronary artery disease prior to this current event. Lipid panel was drawn that demonstrated triglycerides of 298, cholesterol 341, LDL 248, VLDL of 60, HDL of 33, cholesterol HDL ratio of 10.3 Plan: - Dietary modifications were discussed with the patient - Continue atorvastatin 40 mg by mouth at bedtime - Close follow-up with PCP and cardiology. Qualifiers: Qualified Code(s): E78.5 - Hyperlipidemia, unspecified Discussion w patient/family: The assessment and plan as outlined above was discussed with the patient and/or family members who expressed understanding and agreement. All questions were answered. Thank you for involving us in the care of your patient. Please call with any questions. Subjective Principal diagnosis: STEMI Interval history: Mrs. Nuñez is status post drug-eluting stent to the LAD 11/07/2016, she is awake alert interactive and in no acute distress. She denies any pain including chest pain chest tightness diaphoresis, abdominal pain, nausea, vomiting, diarrhea or constipation. She says she is feeling much better compared to yesterday. She denies any history of coronary artery disease or other cardiac history. She does have a father who had his first heart attack at the age of 23 and in his 40s from an [place]. 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 She says she walks 3-7 miles per day and tries to stay quite active. She denies any smoking of cigarettes but does smoke marijuana. I discussed the importance of dietary change, medical compliance, close follow-up with cardiology post discharge. The patient demonstrates understanding. Objective Vital Signs, Last 4 Hours Temp Pulse Resp BP Pulse Ox 11/08/16 09:12 85 16 140/71 96 11/08/16 08:38 68 16 104/58 96 11/08/16 07:22 97.0 F L 11/08/16 07:19 73 16 128/62 94 L 11/08/16 06:00 75 148/79 95 General: Conversant, No Apparent Distress HEENT: Atraumatic, Normocephaly, Mucus Membranes Moist Neck: No JVD, Normal carotid pulses Cardiac: Reg Rate and Rhythm, Normal S1 and S2, No Murmur Lungs: Normal Breath Sounds, No Wheeze, Rales, Rhonchi Neuro: Alert and responsive, No focal deficits noted Abdomen: Soft, Non-Tender, Other (Obese abdomen) Skin: No rashes noted on visualized skin Musculoskeletal: No Chest Wall Tenderness Extremities: No Clubbing, No Cyanosis, No Edema, Normal Pulses Results 11/08/16 03:14 11/08/16 03:14 Lab Results 11/07/16 11/08/16 11/08/16 18:28 03:14 03:14 WBC 11.3 H Hgb 11.9 D Hct 36.3 Plt Count 294 Sodium 137 Potassium 3.7 Chloride 105 Carbon Dioxide 22 BUN 10 Creatinine 0.65 Glucose 96 Calcium 8.7 Total Bilirubin 0.2 AST 11 ALT 10 Alkaline Phosphatase 70 Troponin I 0.57 H* TSH 2.422 Consult Discharge Plan - Plan Referrals: Jeannette hCristian MD [Primary Care Provider] -
[2016-11-08] MEDS ORDERED: Ondansetron 4 MG/2 ML VIAL IVP PRN (13:00)
[2016-11-08] MEDS ORDERED: Nitroglycerin 0.4 MG TAB.SUBL SL PRN (13:00)
--- NOTE | 2016-11-08 15:02 | Electrocardiograph Report ---
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
--- NOTE | 2016-11-08 15:04 | Electrocardiograph Report ---
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
--- NOTE | 2016-11-08 15:06 | Electrocardiograph Report ---
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
[2016-11-09] MEDS ORDERED: Aspirin 81 MG TAB.CHEW PO SCH (09:00)
--- NOTE | 2016-11-09 09:08 | ECHO - Doppler Report ---
Echocardiogram Name: Kenya Nuñez Date of Study: 11/08/2016 Date: 1975 Ht: 62.0 in Medical Record#: [id number] Age: 41 Wt: 241.0 lb Gender: Female BSA: 2.07 Order #: [id number] Location: [facility] Room #: IC8 Reading Physician: Sherine Edouard DO Cord Cutter: Chantal Castillo Ordering Physician: Frantz Osman MD Primary Physician: Jeannette Christian MD Indications: ACS Impressions: LVEF 60%. Normal left ventricular size and systolic function. Normal diastolic function of the left ventricle. Normal right ventricular size and function. Mild mitral regurgitation. Estimated RVSP was 21 mmHg. No pulmonary hypertension. Left Ventricular Wall Motion: Rest Echo Findings All wall segments showed normal motion. Findings: Study Quality * Technically adequate exam. ECG Findings * Normal sinus rhythm. Left Ventricle * LVEF 60%. * Normal LV chamber size, wall thickness and function. * Normal left ventricular diastolic function. Left Atrium * Normal left atrial size. Mitral Valve * Normal mitral valve structure. * No mitral stenosis. * Mild mitral regurgitation. Tricuspid Valve * Tricuspid valve not well visualized. * No tricuspid regurgitation. * Estimated RA pressure is 3 mmHg. * Estimated RVSP is 21 mmHg. * No pulmonary hypertension. Pulmonic Valve * Pulmonic valve is not well visualized. * No pulmonic stenosis. * No pulmonic regurgitation. Pulmonary Artery * Pulmonary artery not well visualized. Aortic Valve * Aortic valve not well visualized. * No aortic regurgitation. * No aortic stenosis. Right Ventricle * Normal right ventricular structure and function. Right Atrium * Normal right atrial size. Interatrial Septum * No evidence of PFO by color Doppler. Aorta * Normally sized aortic root. Pericardium * There is no pericardial effusion present. IVC * Normal IVC dimensions and inspiratory collapse. History Hypertension Hypercholesteremia Family History of CAD History of CAD/PTCA Myocardial Infarction Measurements: BP: 119/ 77 2D Normal Values IVSd: 1.10 cm 0.6 - 1.0 cm LVIDd: 5.30 cm 3.7 - 5.6 cm LVPWd: 1.10 cm 0.6 - 1.1 cm LVIDs: 3.00 cm 1.5 - 3.6 cm AO: 2.90 cm < 4.0 cm LA: 3.90 cm 2.0 - 4.0cm %FS: 43.40 cm >25 % LA volume: 66 Mitral Valve Peak E:.90 m/sec Peak A:.74 m/sec E/A Ratio:1.2 Peak E' Lat Leo:12.7 cm/s Peak E' Med Leo:9.26 cm/s E/E' Lat Ratio:7.1 E/E' Med Ratio:9.8 Tricuspid Valve TV Regurg Peak Grad: 18.00mmHg TV Regurg Peak Leo: 2.10m/sec Updated by Sherine Edouard on 11/09/2016 9:01:37 AM electronically signed on 11/09/2016 9:02:54 AM with status of Final Wall Motion Knight: 1=Normal, 2=Hypokinesis, 3=Akinesis, 4=Dyskinesis, 5=Aneurysmal, 6=Hyperkinetic, X=Not Visualized (Blank)=Missing
--- NOTE | 2016-11-09 09:56 | Cardiology Progress Note ---
Date of Encounter: 11/09/16 Time of Encounter: 09:56 Assessment and Plan (1) ST elevation myocardial infarction (STEMI) Current Visit: Yes Status: Acute Successful PCI of proximal to mid LAD with a single drug-eluting stent. Patient is in normal sinus rhythm. Patient is in no acute distress. Echocardiogram 11/08/2016: LVEF 60%, Normal left ventricular size and function, Normal diastolic dysfunction, Normal right ventricular size and function. mild mitral regurgitation, Estimated RVSP 21mmHg, No pulmonary hypertension. Plan: - Patient to continue on daily aspirin 81 mg, atorvastatin 40 mg by mouth at bedtime, Coreg 3.125 mg by mouth twice a day, Plavix 75 mg by mouth daily. - Dietary modifications and adequate exercise has been discussed with the patient. - Patient will follow-up with cardiology post discharge. Qualifiers: Involved coronary artery: LAD coronary artery Qualified Code(s): I21.02 - ST elevation (STEMI) myocardial infarction involving left anterior descending coronary artery (2) Hyperlipidemia Current Visit: Yes Status: Acute Patient admitted for first STEMI without history of coronary artery disease prior to this current event. Lipid panel was drawn that demonstrated triglycerides of 298, cholesterol 341, LDL 248, VLDL of 60, HDL of 33, cholesterol HDL ratio of 10.3 Plan: - Dietary modifications were discussed with the patient - Continue atorvastatin 40 mg by mouth at bedtime - Close follow-up with PCP and cardiology. Qualifiers: Qualified Code(s): E78.5 - Hyperlipidemia, unspecified Discussion w patient/family: The assessment and plan as outlined above was discussed with the patient and/or family members who expressed understanding and agreement. All questions were answered. Thank you for involving us in the care of your patient. Please call with any questions. Subjective Principal diagnosis: STEMI Interval history: Mrs. Nuñez is status post drug-eluting stent to the LAD 11/07/2016, she is awake alert interactive and in no acute distress. She denies any pain including chest pain chest tightness diaphoresis, abdominal pain, nausea, vomiting, diarrhea or constipation. Her only complaint is a headache she has had for days prior to coming in. She says the headache is dull and improves with tylenol but has not resolved completely. She has not had any other symptoms. She has questions regarding returning to work, increasing her activity level and receiving a tattoo while on Plavix. She has tolerated oral intake and moving her bowels and urinating appropriately. Objective Vital Signs, Last 4 Hours Temp Pulse Resp BP Pulse Ox 11/09/16 07:40 98.1 F 11/09/16 07:00 54 16 130/55 94 L General: Conversant, No Apparent Distress HEENT: Atraumatic, Normocephaly, Mucus Membranes Moist Neck: No JVD, Normal carotid pulses Cardiac: Reg Rate and Rhythm, Normal S1 and S2, No Murmur Lungs: Normal Breath Sounds, No Wheeze, Rales, Rhonchi Neuro: Alert and responsive, No focal deficits noted Abdomen: Soft, Non-Tender Skin: No rashes noted on visualized skin Musculoskeletal: No Chest Wall Tenderness Extremities: No Clubbing, No Cyanosis, No Edema, Normal Pulses Results 11/08/16 03:14 11/08/16 03:14 Consult Discharge Plan - Plan Referrals: Jeannette Christian MD [Primary Care Provider] -
[2016-11-09 11:30] VITALS: BP 123/72
--- NOTE | 2016-11-09 11:32 | Discharge Summary ---
Date of Encounter: 11/09/16 Time of Encounter: 11:27 - Discharge Diagnosis (1) ST elevation myocardial infarction (STEMI) Priority: Primary Status: Acute Qualifiers: Involved coronary artery: LAD coronary artery Qualified Code(s): I21.02 - ST elevation (STEMI) myocardial infarction involving left anterior descending coronary artery (2) Hyperlipidemia Priority: Secondary Status: Acute Qualifiers: Qualified Code(s): E78.5 - Hyperlipidemia, unspecified - Discharge Medications Prescriptions: Nitroglycerin 0.4 mg SL Q5MIN PRN #5 tab.subl PRN Reason: Chest Pain Aspirin 81 mg PO DAILY #90 tab.chew Atorvastatin [Lipitor] 40 mg PO HS #30 tablet Carvedilol [Coreg] 3.125 mg PO BIDWM 30 Days Clopidogrel [Plavix] 75 mg PO DAILY #30 tablet Losartan [Cozaar] 25 mg PO DAILY #30 tablet Home Medications: Aspirin 81 mg PO DAILY #90 tab.chew 11/09/16 [Rx] Atorvastatin [Lipitor] 40 mg PO HS #30 tablet 11/09/16 [Rx] Carvedilol [Coreg] 3.125 mg PO BIDWM 30 Days 11/09/16 [Rx] Clopidogrel [Plavix] 75 mg PO DAILY #30 tablet 11/09/16 [Rx] Losartan [Cozaar] 25 mg PO DAILY #30 tablet 11/09/16 [Rx] Nitroglycerin 0.4 mg SL Q5MIN PRN #5 tab.subl 11/09/16 [Rx] Allergies/Adverse Reactions: Allergies codeine Allergy (Verified 11/07/16 16:18) Swelling of Lip/Tongue/Throat Sulfa (Sulfonamide Antibiotics) Allergy (Verified 11/07/16 16:18) Swelling of Lip/Tongue/Throat Procedures/tests Complete & Pending: Procedures Performed prior 72 hours Category Date Time Status CL Cardiac Catheterization [CL] Stat Scholarship Counselor 11/07/16 16:36 Completed ECG 12 lead ECG [ECG] Routine Y 11/07/16 17:56 Completed ECG 12 lead ECG [ECG] Routine Y 11/08/16 07:00 Ordered ECG 12 lead ECG [ECG] Stat Y 11/07/16 17:56 Completed EV echocardiogram Routine Y 11/08/16 17:56 Completed Date of admission: 11/07/16 16:25 Primary care physician: Jeannette Christian MD Consults: 11/07/16 17:56 Consult to Cardiac Rehabilitation-Phase1 [CONS] Routine Comment: Reason for Consult: AMI Call Completed: Yes Consult to Nurse Navigator [CONS] Routine Comment: 11/08/16 14:47 Consult to Gas Load Dispatcher [CONS] Routine Reason for SW Consult: NEEDS ASSISTANCE WITH MEDICATIONS UPON DISCHARGE. WILL BE DISCHARGED TOMORROW 11/09/16 Discharging clinician: Christophe Fischer Anticipated date of discharge: 11/09/16 - Patient Status Disposition: Home, Self-Care Condition: Good Functional capacity at discharge: independent ambulation Overall status at discharge: patient is progressing back to baseline - Discharge Instructions Instructions: Myocardial Infarction (DC) Follow Up With: Jeannette Christian MD [Primary Care Provider] - Heron Pimentel MD [Partnered Physician] - Additional Instructions: Activity level: No more than walking until approved after Cardiology follow up appointment after discharge. Take prescriptions as prescribed. - Diet and Activity Activity: return to work once cleared by your PCP/specialist Diet: low fat, low cholesterol - Hospital Course Hospital course: Ms. Nuñez is a 41 year old female with no known prior medical history was admitted on 11/07/2016 for STEMI and underwent successful PCI of proximal to mid LAD with a single drug-eluting stent. Post procedure she was stabilized in the ICU prior to step down to telemetry. She remained in normal sinus rhythm throughout her stay. Laboratory results demonstrated Hyperglycemia and hypercholesteremia. Patient has a significant family history with a father having MS at the age of 23 and from an MS in his 40's. Life style modifications, exercise and medical compliance were discussed with the patient. Patient was deemed stable for discharge on . Prescriptions were printed and provided to the patient at the time of discharge. Patient to follow up with cardiology and PCP post discharge. Echocardiogram 11/08/2016: LVEF 60%, Normal left ventricular size and function, Normal diastolic dysfunction, Normal right ventricular size and function. mild mitral regurgitation, Estimated RVSP 21mmHg, No pulmonary hypertension. - Time Spent with Patient Total time spent providing and/or coordinating discharge services: Physical Examination Vital Signs, Last 4 Hours Temp 11/09/16 07:40 98.1 F General: Conversant, No Apparent Distress HEENT: Atraumatic, Normocephaly, Mucus Membranes Moist Neck: No JVD, Normal carotid pulses Cardiac: Reg Rate and Rhythm, Normal S1 and S2, No Murmur Lungs: Normal Breath Sounds, No Wheeze, Rales, Rhonchi Neuro: Alert and responsive, No focal deficits noted Abdomen: Soft, Non-Tender Skin: No rashes noted on visualized skin Musculoskeletal: No Chest Wall Tenderness Extremities: No Clubbing, No Cyanosis, No Edema, Normal Pulses
== END 2016-11-09 12:17 | disposition home or self-care (01) | DRG 174 ==
LOC: EMEROO 14:31 → ICNU 16:25 → 2ANU 11-09 09:06
PROVIDERS: ADMIT Internal Medicine Interventional Cardiology; ATTEND Internal Medicine Interventional Cardiology

== ENCOUNTER 2017-03-12 23:16 | Observation (INO) ==
[2017-03-12] MEDS ORDERED: Aspirin 81 MG TAB.CHEW PO ONE (23:37)
[2017-03-12] MEDS ORDERED: Nitroglycerin 0.4 MG TAB.SUBL SL ONE (23:48)
[2017-03-12 23:55] LABS: Basophils % 0.3 %; Eosinophils # 0.2 K/mcL (0.0-0.6); Eosinophils % 1.6 %; Hematocrit 39.3 % (35.3-44.9); Immature Granulocytes % 0.5 % (0-4); Lymphocytes # 4.3 K/mcL (0.6-4.6); Lymphocytes % 36.1 %; Mean Corpuscular HGB Conc 33.1 g/dL (31.6-35.5); Mean Corpuscular Hemoglobin 27.6 pg (28.0-33.3); Mean Corpuscular Volume 83.4 fL (83.0-100.0); Mean Platelet Volume 9.3 fL (9.4-12.4); Monocytes # 0.6 K/mcL (0.0-1.3); Monocytes % 4.9 %; Neutrophils # 6.7 K/mcL (1.6-8.9); Platelet Count 335 K/mcL (140-400); Red Blood Count 4.71 M/mcL (3.82-4.97); Red Cell Distribution Width 13.9 % (11.5-14.5); Segmented Neutrophils % 56.6 %
[2017-03-13 00:05] LABS: Prothrombin Time 10.7 Seconds (9.4-12.1)
[2017-03-13 00:07] LABS: Activated Partial Thrombo Time 30.8 Seconds (26.0-36.0)
[2017-03-13 00:13] LABS: BUN/Creatinine Ratio 20 (6-26); Blood Urea Nitrogen 14 mg/dL (7-20); Calcium 9.2 mg/dL (8.6-10.8); Carbon Dioxide 26 mEq/L (19-29); Chloride 105 mEq/L (98-109); Glucose 118 mg/dL (70-99); Osmolality,Calculated 294 (280-300); Potassium 3.5 mEq/L (3.5-4.5); Sodium 141 mEq/L (136-145); eGFR For African Americans > 60 (> 60); eGFR For Non-African Americans > 60 (> 60)
--- NOTE | 2017-03-13 00:26 | Emergency Department Note ---
Disposition Clinical Impression: NSTEMI (non-ST elevated myocardial infarction) Disposition: Admitted As Inpatient Condition: Fair Referrals: Unassigned,Provider [Non-Partnered Physician] - Forms: ED Satisfaction Letter Time of Disposition: 01:36 Chest Pain HPI - General Chief Complaint: ED Chest Pain Stated Complaint: chest pain Time Seen by Provider: 03/12/17 23:42 Source: patient Mode of arrival: private vehicle Limitations: no limitations Vital Signs Reviewed: Yes Nursing Notes Reviewed: Yes - History of Present Illness HPI Narrative: Very pleasant 42-year-old female patient presents to the emergency department complaining of chest pain. Patient states the pain began approximately 4 hours prior to arrival. Patient does note a significant amount of lifestyle stressors over the last week. Patient does report that in October of this year she was diagnosed with a heart attack, underwent cardiac catheterization with one stent placement. Patient states that she had greater than 90% blockage of the site. She also notes that she had multivessel blockages but were not greater than 50% and did not require stent placement. Patient has a strong family cardiac history of early . Patient states that although this pain does feel similar to her previous heart attack it is on the contralateral side. She denies any recent illnesses. She denies any fever, chills, nausea or vomiting. She denies any dizziness or lightheadedness. She denies any shortness of breath. She denies any energy drinks. Pt complaint: chest pain Onset (ago): hour(s) (4) Duration: constant Onset: during rest Pain Location: right chest Severity: mild, moderate Severity scale (1-10): 3 Quality: sharp Pain Radiation: back Improves with: nothing Worsens with: nothing Context: other (History of previous [place]) Associated symptoms: Denies: nausea, vomiting, diaphoresis, dyspnea, sense of impending doom Treatments prior to arrival chest pain: none - Related Data Home Medications Medication Instructions Recorded Confirmed Aspirin 81 mg PO DAILY 03/13/17 03/13/17 Atorvastatin [Lipitor] 40 mg PO HS 03/13/17 03/13/17 Clopidogrel [Plavix] 75 mg PO DAILY 03/13/17 03/13/17 Lisinopril [Zestril] 5 mg PO DAILY 03/13/17 03/13/17 Nitroglycerin 0.4 mg SL DAILY 05/14/17 05/14/17 Allergies Allergy/AdvReac Type Severity Reaction Status Date / Time codeine Allergy Swelling Verified 11/07/16 16:18 of Lip/Tongue/Throat Sulfa (Sulfonamide Allergy Swelling Verified 11/07/16 16:18 Antibiotics) of Lip/Tongue/Throat All systems ED: reviewed and negative except as stated. Constitutional: Denies: fever, chills Cardiovascular: Reports: chest pain. Denies: palpitations, dyspnea on exertion , syncope Respiratory: Denies: cough, dyspnea Gastrointestinal: Denies: abdominal pain, nausea, vomiting Musculoskeletal: Denies: back pain, neck pain Integumentary: Denies: rash, abrasion, lesions Neurological: Denies: headache Psychiatric: Denies: anxiety, depression, suicidal thoughts, homicidal thoughts Chest Pain PMH - Past Medical History Medical history: Reports: myocardial infarction Surgical history: Reports: non-contributory Psychiatric history: Reports: no psych history - Social History Smoking Status: Never smoker Alcohol use: Reports: none Drug use: Reports: marijuana Physical Exam - General Limitations: no limitations General appearance: alert, in no apparent distress - Head Head exam: atraumatic, normocephalic, normal inspection - Eye Eye exam: Present: normal appearance, PERRL - Neck Neck exam: Present: normal inspection, full ROM, trachea midline - Chest Chest inspection: Present: normal inspection, symmetric chest wall rise - Respiratory Respiratory exam: Present: normal lung sounds bilaterally. Absent: respiratory distress - Cardiovascular Cardiovascular exam: Present: regular rate, normal rhythm, normal heart sounds - Expanded Lower Extremity Exam Gait: observed and normal - Back Exam Back exam: Present: normal inspection, full ROM. Absent: tenderness - Neurological Exam Neurological exam: Present: alert, oriented X3 - Psychiatric Psychiatric exam: Present: normal affect, normal mood Course Vital Signs Temperature 97.7 F 03/12/17 23:23 Pulse Rate 79 03/12/17 23:23 Respiratory Rate 18 03/12/17 23:23 Blood Pressure 127/88 03/12/17 23:23 O2 Sat by Pulse Oximetry 95 03/12/17 23:23 Temperature 97.7 F 03/12/17 23:23 Pulse Rate 89 03/13/17 00:38 Respiratory Rate 17 03/13/17 00:38 Blood Pressure 110/72 03/13/17 00:38 O2 Sat by Pulse Oximetry 93 03/13/17 00:38 Oxygen Delivery Oxygen Delivery Room Air Chest Pain - Differential Diagnosis Likely: chest pain - Medical Records Medical records reviewed: Yes I reviewed the patient's medical records. - Lab Data Lab results reviewed: Yes I reviewed the patient's lab results. Result diagrams: 03/12/17 23:49 03/12/17 23:49 Lab Results 03/12/17 03/12/17 03/12/17 Range/Units 23:49 23:49 23:49 WBC 11.9 H (4.3-11.1) K/mcL RBC 4.71 (3.82-4.97) M/mcL Hgb 13.0 (11.5-15.4) g/dL Hct 39.3 (35.3-44.9) % MCV 83.4 (83.0-100.0) fL MCH 27.6 L (28.0-33.3) pg MCHC 33.1 (31.6-35.5) g/dL RDW 13.9 (11.5-14.5) % Plt Count 335 (140-400) K/mcL MPV 9.3 L (9.4-12.4) fL Immature Gran % 0.5 (0-4) % Seg Neutrophils % 56.6 % Lymphocytes % 36.1 % Monocytes % 4.9 % Eosinophils % 1.6 % Basophils % 0.3 % Neutrophils # 6.7 (1.6-8.9) K/mcL Lymphocytes # 4.3 (0.6-4.6) K/mcL Monocytes # 0.6 (0.0-1.3) K/mcL Eosinophils # 0.2 (0.0-0.6) K/mcL Basophils # 0.0 (0.0-0.2) K/mcL PT 10.7 (9.4-12.1) Seconds INR 1.0 APTT 30.8 (26.0-36.0) Seconds Sodium 141 (136-145) mEq/L Potassium 3.5 (3.5-4.5) mEq/L Chloride 105 (98-109) mEq/L Carbon Dioxide 26 (19-29) mEq/L BUN 14 (7-20) mg/dL Creatinine 0.70 (0.57-1.11) mg/dL Est GFR ( Amer) > 60 (> 60) Est GFR (Non-Af Amer) > 60 (> 60) BUN/Creatinine Ratio 20 (6-26) Glucose 118 H (70-99) mg/dL Calculated Osmolality 294 (280-300) Calcium 9.2 (8.6-10.8) mg/dL Troponin I (0-0.03) ng/mL 03/12/17 Range/Units 23:49 WBC (4.3-11.1) K/mcL RBC (3.82-4.97) M/mcL Hgb (11.5-15.4) g/dL Hct (35.3-44.9) % MCV (83.0-100.0) fL MCH (28.0-33.3) pg MCHC (31.6-35.5) g/dL RDW (11.5-14.5) % Plt Count (140-400) K/mcL MPV (9.4-12.4) fL Immature Gran % (0-4) % Seg Neutrophils % % Lymphocytes % % Monocytes % % Eosinophils % % Basophils % % Neutrophils # (1.6-8.9) K/mcL Lymphocytes # (0.6-4.6) K/mcL Monocytes # (0.0-1.3) K/mcL Eosinophils # (0.0-0.6) K/mcL Basophils # (0.0-0.2) K/mcL PT (9.4-12.1) Seconds INR APTT (26.0-36.0) Seconds Sodium (136-145) mEq/L Potassium (3.5-4.5) mEq/L Chloride (98-109) mEq/L Carbon Dioxide (19-29) mEq/L BUN (7-20) mg/dL Creatinine (0.57-1.11) mg/dL Est GFR ( Amer) (> 60) Est GFR (Non-Af Amer) (> 60) BUN/Creatinine Ratio (6-26) Glucose (70-99) mg/dL Calculated Osmolality (280-300) Calcium (8.6-10.8) mg/dL Troponin I 0.05 H* (0-0.03) ng/mL - Radiology Data Radiology results reviewed: Yes I reviewed the patient's radiology results. Heart Score - Score History: Moderately Suspicious EKG: Normal Age: Less than 45 Risk Factors: Equal/Greater than 3 risk factor or history of atherosclerotic disease Troponin: 1-3x normal limit HEART Score Total: 4
[2017-03-13] MEDS ORDERED: *HR* Heparin 5,000 UNIT/ML VIAL IVP ONE (01:48)
[2017-03-13] MEDS ORDERED: Heparin 25,000 UNIT/500 ML D5W 25,000 UNIT/500 ML MLS IVC SCH (02:00)
[2017-03-13] MEDS ORDERED: Acetaminophen 325 MG TABLET PO PRN (02:35)
[2017-03-13] MEDS ORDERED: Naloxone 0.4 MG/ML INJ IVP PRN (02:35)
[2017-03-13] MEDS ORDERED: Ondansetron 4 MG/2 ML VIAL IVP PRN (02:35)
[2017-03-13] MEDS ORDERED: Nitroglycerin 0.4 MG TAB.SUBL SL PRN (02:40)
--- NOTE | 2017-03-13 02:48 | Internal Med History&Physical ---
Date of Encounter: 03/13/17 Time of Encounter: 02:00 Assessment and Plan (1) NSTEMI (non-ST elevated myocardial infarction) Current visit: Yes Status: Acute Patient has chest pain. She has a known history of CAD S/P stenting. - Patient has a mild elevated troponin. However, her renal function is normal. She has no signs of sepsis or infection. No other conditions to explain the elevated troponin. Need to consider NSTEMI. - We will place patient on continuous cardiac monitoring. - Heparin drip started from the emergency room. We will continue heparin drip. - Continue aspirin, Plavix, beta godfrey, and statin. - NTG sublingual when necessary. - We will ask cardiology consult. Patient is at high risk because she is on heparin drip, needed close monitoring. (2) Hypertension Current visit: Yes Status: Acute BP is stable. continue home medications Qualifiers: Hypertension type: essential hypertension Qualified Code(s): I10 - Essential (primary) hypertension (3) DVT prophylaxis Current visit: Yes Status: Acute Patient is on heparin drip. (4) Hyperlipidemia Current visit: No Status: Acute Continue statin treatment Qualifiers: Qualified Code(s): E78.5 - Hyperlipidemia, unspecified Internal Medicine - H&P: HPI Chief complaint: Chest pain Admitted From: Home Plans for Post Hospital Care: Home History of present illness: Ms. Nuñez is a 42 year old female with history of CAD S/P stent on 11/07/16 presented to emergency room for chest pain. Patient said she has no chest pain after the stenting until this evening 8 pm. Patient said pain is located on the right lower chest, sharp and the tightness, 3-4 out of 10, radiating to right shoulder. Pain is intermittent, lasts 1-2 minutes every episode, the frequency is about every 10-15 minutes. Patient has shortness of breath when she has pain. She denies nausea, or diaphoresis. Patient said that this time of the chest pain is not like last time when she had heart attack in October. Patient denies fever, cough, recent travel, injury or recent surgery. There is no obvious aggregating or alleviating factors. Patient was given nitroglycerin in the emergency room. She is pain-free since after the nitroglycerin use. Patient has first troponin positive. She was admitted as NSTEMI. I discussed the CODE STATUS with patient. She is a full code. Past Med Surg Social Fam HX - Past Medical History Medical history: myocardial infarction Psychiatric history: no psych history - Past Surgical History Surgical History: non-contributory - Social History Smoking Status: Never smoker Smokeless Tobacco Status: No Alcohol use: none Drug use: marijuana - Family History Father Hx Family Cardiac Disorders: Yes ([place] at 23, at 49 from [place]) Internal Medicine - H&P: Meds Aspirin 81 mg PO DAILY 03/13/17 [History] Atorvastatin [Lipitor] 40 mg PO HS 03/13/17 [History] Clopidogrel [Plavix] 75 mg PO DAILY 03/13/17 [History] Lisinopril [Zestril] 5 mg PO DAILY 03/13/17 [History] Nitroglycerin 0.4 mg SL DAILY 03/13/17 [History] Allergies codeine Allergy (Verified 11/07/16 16:18) Swelling of Lip/Tongue/Throat Sulfa (Sulfonamide Antibiotics) Allergy (Verified 11/07/16 16:18) Swelling of Lip/Tongue/Throat All Systems PM: A 10-system review of systems was performed and is negative for pertinent findings except as documented above in the HPI. - Constitutional Constitutional: no chills, no fever(s), no night sweats - EENT Eyes: no change in vision, no discharge, no pain, no photophobia Ears: no ear discharge, no ear pain, no tinnitus Nose, mouth and throat: no dysphagia, no nasal discharge, no neck pain, no sore throat - Cardiovascular Cardiovascular ROS IM: no chest pain, no diaphoresis, no dyspnea, no lightheadedness, no palpitations, no syncope - Respiratory Respiratory: no cough, no dyspnea, no wheezing, no excessive phlegm production - Gastrointestinal Gastrointestinal: no abdominal pain, no diarrhea, no hematemesis, no hematochezia, no melena, no nausea, no vomiting - Genitourinary Genitourinary: no change in urinary stream, no dysuria, no flank pain, no hematuria - Musculoskeletal Musculoskeletal ROS IM: no numbness, no tingling - Integumentary Integumentary IM: no rash, no unusual bruising - Neurological Neurological ROS: no confusion, no convulsions, no focal weakness, no numbness, no tingling, no tremor(s) - Hematologic/Lymphatic Hematologic/Lymphatic: no easy bruising - Constitutional Vitals: Temp Pulse Resp BP Pulse Ox 97.7 F 89 18 121/77 93 03/12/17 23:23 03/13/17 00:38 03/13/17 02:17 03/13/17 02:17 03/13/17 00:38 General appearance: Present: A&O X 3, no acute distress, answers questions appropriately - Head Head exam: Present: atraumatic, normocephalic - Eye Eye exam: Present: PERRL, conjuntiva pink, sclera anicteric Pupils: Present: PERRL - Neck Neck exam general surgery: Present: supple, trachea midline. Absent: lymphadenopathy - Respiratory Respiratory exam: Present: CTAB. Absent: accessory muscle use, chest wall tenderness, rales, rhonchi, wheezes - Cardiovascular Cardiovascular exam: Present: RRR, +S1, +S2. Absent: diastolic murmur, gallop, rubs, systolic murmur - GI/Abdominal GI/Abdominal exam: Present: normal bowel sounds, soft, no peritoneal signs. Absent: distended, tenderness - Extremities Exam Extremities exam: Present: warm, radial pulses palpable and symetrical. Absent : calf tenderness, cyanotic, pedal edema - Neurological Exam Neurological exam: Present: CN II-XII intact, oriented X3, no focal deficits. Absent: pronater drift, facial droop, speech deficit - Skin Skin exam: Present: dry, intact Internal Med - H&P Results - Labs CBC & Chem 7: 03/12/17 23:49 03/12/17 23:49 - EKG Data -: EKG Interpreted by Myself EKG shows normal: sinus rhythm Rate: normal
--- NOTE | 2017-03-13 02:52 | Emergency Department Note ---
Attestation Statement - Attestation Attestation: For this encounter, I have reviewed the CNC MANAGER or PA documentation, treatment plan, and medical decision making; and I have had face to face time with this patient. Patient is a 42-year-old female with a previous history of coronary artery disease with an LA and a coronary artery stent who presents with a complaint of some right anterior chest pain which started about 8 PM this evening. The pain radiated to the right shoulder and scapular region. Patient states this is in the same area as her pain when she had her LA and feels similar but not as severe. On examination patient is a well-developed obese female in no acute distress. She is alert and oriented 3. There is no cyanosis or diaphoresis. Chest is nontender to palpation. Breath sounds are clear and equal bilaterally. Heart regular rate and rhythm. Labs reviewed. Troponin 0.05. No acute changes on EKG. Chest x-ray negative. The hospitalist, Dr. Son, was consulted and accepted admission of the patient.
[2017-03-13 04:52] LABS: Basophils % 0.2 %; Eosinophils # 0.2 K/mcL (0.0-0.6); Eosinophils % 1.8 %; Hematocrit 37.7 % (35.3-44.9); Hemoglobin 12.2 g/dL (11.5-15.4); Immature Granulocytes % 0.6 % (0-4); Lymphocytes # 5.1 K/mcL (0.6-4.6); Lymphocytes % 38.9 %; Mean Corpuscular HGB Conc 32.4 g/dL (31.6-35.5); Mean Corpuscular Hemoglobin 27.2 pg (28.0-33.3); Mean Platelet Volume 9.6 fL (9.4-12.4); Monocytes # 0.6 K/mcL (0.0-1.3); Monocytes % 4.2 %; Neutrophils # 7.2 K/mcL (1.6-8.9); Platelet Count 303 K/mcL (140-400); Red Blood Count 4.49 M/mcL (3.82-4.97); Red Cell Distribution Width 13.9 % (11.5-14.5); Segmented Neutrophils % 54.3 %
[2017-03-13 05:04] LABS: BUN/Creatinine Ratio 27 (6-26); Blood Urea Nitrogen 17 mg/dL (7-20); Calcium 8.9 mg/dL (8.6-10.8); Carbon Dioxide 23 mEq/L (19-29); Chloride 104 mEq/L (98-109); Glucose 111 mg/dL (70-99); Magnesium 1.6 mg/dL (1.6-2.6); Osmolality,Calculated 288 (280-300); Potassium 3.2 mEq/L (3.5-4.5); Sodium 138 mEq/L (136-145); eGFR For African Americans > 60 (> 60); eGFR For Non-African Americans > 60 (> 60)
[2017-03-13] MEDS: Aspirin 81 MG TAB.CHEW PO SCH (07:46)
--- NOTE | 2017-03-13 09:51 | Cardiology Consult Note ---
Date of Encounter: 03/13/17 Time of Encounter: 09:48 Assessment and Plan (1) Chest pain Current Visit: Yes Status: Acute Atypical chest pain, borderline trop. Would continue CARLA ( third set of enzymes), check echo, start empriric nitro. Qualifiers: Chest pain type: precordial pain Qualified Code(s): R07.2 - Precordial pain Discussion w patient/family: The assessment and plan as outlined above was discussed with the patient and/or family members who expressed understanding and agreement. All questions were answered. Thank you for involving us in the care of your patient. Please call with any questions. History of Present Illness Consult date: 03/13/17 Requesting physician: Stephen Red Consult reason: Chest pain History of present illness: Ms. Nuñez is a 42 year old female with a history of CAD, s/p STEMI 11/16. She has acute onset of chest pain with no aggravating reason other than emotional stress. The pain lasted for 4 hrs and evetually was relieved with nitro in ER. Past Med Surg Social Fam HX - Past Medical History Medical history: myocardial infarction, renal disease Psychiatric history: no psych history - Past Surgical History Surgical History: non-contributory, appendectomy - Social History Smoking Status: Never smoker Smokeless Tobacco Status: No Alcohol use: none Drug use: marijuana - Family History Father Name: Ernesto Salcido Living Status: Age at : 49 Cause of : [place] Hx Family Cardiac Disorders: Yes ([place], cardiomegally, strokes, hypotension, severe HTI) Hx Family Respiratory Disorders: No Hx Family Cancer: No Hx Family GI Disorders: No Hx Family Genitourinary Disorders: Yes (Complete kidney failure) Hx Family Endocrine Disorder: No Hx Family Musculoskeletal Disorders: No Hx Family Neuromuscular Disorders: No Hx Family Neurologic Disorders: Yes (CVA, TIA) Hx Family HEENT Disorders: No Hx Family Autoimmune Disorders: No Hx Family Reproductive Disorders: No Hx Family Psychosocial Disorders: No Hx Family Medical Disorders: Yes (Blind) Medications and Allergies Aspirin 81 mg PO DAILY 03/13/17 [History] Atorvastatin [Lipitor] 40 mg PO HS 03/13/17 [History] Clopidogrel [Plavix] 75 mg PO DAILY 03/13/17 [History] Lisinopril [Zestril] 5 mg PO DAILY 03/13/17 [History] Nitroglycerin 0.4 mg SL DAILY 03/13/17 [History] Allergies codeine Allergy (Verified 11/07/16 16:18) Swelling of Lip/Tongue/Throat Sulfa (Sulfonamide Antibiotics) Allergy (Verified 11/07/16 16:18) Swelling of Lip/Tongue/Throat All Systems Review: A 10-system review of systems was performed and is negative for pertinent findings except as documented above in the HPI. Physical Examination Vital Signs, Last 4 Hours Temp Pulse Resp BP Pulse Ox 03/13/17 07:35 97.8 F 65 16 131/81 96 General: Conversant, No Apparent Distress HEENT: Atraumatic, Normocephaly, Mucus Membranes Moist Neck: No JVD, Normal carotid pulses Cardiac: Reg Rate and Rhythm, Normal S1 and S2, No Murmur Lungs: Normal Breath Sounds, No Wheeze, Rales, Rhonchi Neuro: Alert and responsive, No focal deficits noted Abdomen: Soft, Non-Tender Skin: No rashes noted on visualized skin Musculoskeletal: No Chest Wall Tenderness Extremities: No Clubbing, No Cyanosis, No Edema, Normal Pulses Results 03/13/17 04:32 03/13/17 04:32 Lab Results 03/13/17 03/13/17 03/13/17 04:32 04:32 04:32 WBC 13.2 H Hgb 12.2 Hct 37.7 Plt Count 303 APTT Sodium 138 Potassium 3.2 L Chloride 104 Carbon Dioxide 23 BUN 17 Creatinine 0.62 Glucose 111 H Calcium 8.9 Magnesium 1.6 Troponin I 0.04 H* 03/13/17 07:51 WBC Hgb Hct Plt Count APTT 68.8 H D Sodium Potassium Chloride Carbon Dioxide BUN Creatinine Glucose Calcium Magnesium Troponin I - EKG Interpretation EKG results cardiology: personally reviewed (No acute ST or T wave changes) Consult Discharge Plan - Plan Referrals: Jeannette Christian MD [Primary Care Provider] -
--- NOTE | 2017-03-13 12:57 | Electrocardiograph Report ---
[address] [address] Test Date: 2017-03-12 Pat Name: Kenya Nuñez Department: 104 Room: [facility] Gender: F Communications Executive: : 1975 Requested By: Mario Lazcano Order Number: [id number] Reading MD: Víctor Tuttle Measurements Intervals [place] Rate: 82 P: 19 CT: 138 QRS: -6 QRSD: 112 T: 14 QT: 379 QTc: 417 Interpretive Statements SINUS RHYTHM MODERATE INTRAVENTRICULAR CONDUCTION DELAY VOLTAGE CRITERIA FOR LVH Electronically Signed On 03-13-2017 12:56:06 EDT by Víctor Tuttle
--- NOTE | 2017-03-13 12:58 | Electrocardiograph Report ---
[place] [address] Test Date: 2017-03-13 Pat Name: Kenya Nuñez Department: 102 Room: [facility] Gender: F Shellfish Sorter: : 1975 Requested By: Marycarmen Schultz Order Number: [id number] Reading MD: Víctor Tuttle Measurements Intervals [place] Rate: 73 P: 48 TN: 153 QRS: 1 QRSD: 113 T: 14 QT: 417 QTc: 443 Interpretive Statements SINUS RHYTHM MODERATE INTRAVENTRICULAR CONDUCTION DELAY VOLTAGE CRITERIA FOR LVH Electronically Signed On 03-13-2017 12:56:54 EDT by Víctor Tuttle
--- NOTE | 2017-03-13 13:53 | ECHO - Doppler Report ---
Echocardiogram Name: Kenya Nuñez Date of Study: 03/13/2017 Date: 1975 Ht: 62.0 in Medical Record#: [id number] Age: 42 Wt: 210.0 lb Gender: Female BSA: 1.95 Order #: [id number] Location: [facility] Room #: [facility] Reading Physician: Jerod Plasencia DO, [facility], DARIA Instrument Fitter: Edwin Julian ELIZABETH Ordering Physician: Víctor Tuttle MD, [facility] Primary Physician: Indications: Chest pain Impressions: LVEF 60%. Normal LV chamber size, wall thickness and function. Mild left ventricular diastolic dysfunction. Normal right ventricular structure and function. No evidence of pulmonary hypertension. No significant valvular dysfunction. Left Ventricular Wall Motion: Rest Echo Findings All wall segments showed normal motion. Findings: Study Quality * Technically adequate exam. ECG Findings * Normal sinus rhythm. Left Ventricle * LVEF 60%. * Normal LV chamber size, wall thickness and function. * Mild left ventricular diastolic dysfunction. Right Ventricle * Normal right ventricular structure and function. Left Atrium * Mildly dilated left atrium. Right Atrium * Normal right atrial size. Interatrial Septum * No evidence of PFO by color Doppler. Aortic Valve * Trileaflet aortic valve with normal function. * No aortic regurgitation. * No aortic stenosis. Mitral Valve * Normal mitral valve structure and function. * No mitral regurgitation. * No mitral stenosis. Tricuspid Valve * Normal tricuspid valve structure and function. * Trace tricuspid regurgitation. * No evidence of pulmonary hypertension. Pulmonic Valve * Normal pulmonic valve structure and function. * Trace pulmonic regurgitation. Aorta * Normally sized aortic root. Pericardium * The pericardium appears normal. IVC * Normal IVC dimensions and inspiratory collapse. Pulmonary Artery * Normal visualized portions of the main pulmonary artery. History Hypertension Hypercholesteremia History of CAD/PTCA Myocardial Infarction 11/08/16 a Previous Echo was performed. Measurements: BP: 103/ 77 2D Normal Values RVIDd: 2.70 cm <2.7 cm IVSd: 1.10 cm 0.6 - 1.0 cm LVIDd: 4.70 cm 3.7 - 5.6 cm LVPWd: .80 cm 0.6 - 1.1 cm LVIDs: 3.00 cm 1.5 - 3.6 cm AO: 2.50 cm < 4.0 cm LA: 3.00 cm 2.0 - 4.0cm %FS: 36.20 cm >25 % LA volume: 46 Mitral Valve Peak E:.80 m/sec Peak A:.70 m/sec E/A Ratio:1.1 Peak E' Lat Leo:13.3 cm/s Peak E' Med Leo:9.8 cm/s E/E' Lat Ratio:6 E/E' Med Ratio:8.2 Tricuspid Valve TV Regurg Peak Grad: 14.00mmHg TV Regurg Peak Leo: 1.87m/sec Updated by Jerod Plasencia DO, JUSTICE, DARIA, JOE on 03/13/2017 1:49:42 PM electronically signed on 03/13/2017 1:50:06 PM with status of Final Wall Motion Knight: 1=Normal, 2=Hypokinesis, 3=Akinesis, 4=Dyskinesis, 5=Aneurysmal, 6=Hyperkinetic, X=Not Visualized (Blank)=Missing
[2017-03-14 04:25] LABS: Basophils % 0.3 %; Eosinophils # 0.3 K/mcL (0.0-0.6); Eosinophils % 2.3 %; Hematocrit 35.6 % (35.3-44.9); Hemoglobin 11.9 g/dL (11.5-15.4); Immature Granulocytes % 0.6 % (0-4); Lymphocytes # 4.4 K/mcL (0.6-4.6); Lymphocytes % 40.1 %; Mean Corpuscular HGB Conc 33.4 g/dL (31.6-35.5); Mean Corpuscular Volume 83.8 fL (83.0-100.0); Mean Platelet Volume 10.1 fL (9.4-12.4); Monocytes # 0.4 K/mcL (0.0-1.3); Neutrophils # 5.7 K/mcL (1.6-8.9); Platelet Count 290 K/mcL (140-400); Red Blood Count 4.25 M/mcL (3.82-4.97); Red Cell Distribution Width 13.9 % (11.5-14.5); Segmented Neutrophils % 52.7 %
[2017-03-14 04:49] LABS: BUN/Creatinine Ratio 19 (6-26); Blood Urea Nitrogen 12 mg/dL (7-20); Calcium 8.4 mg/dL (8.6-10.8); Carbon Dioxide 24 mEq/L (19-29); Chloride 105 mEq/L (98-109); Glucose 115 mg/dL (70-99); Magnesium 1.7 mg/dL (1.6-2.6); Osmolality,Calculated 287 (280-300); Potassium 3.3 mEq/L (3.5-4.5); Sodium 138 mEq/L (136-145); eGFR For African Americans > 60 (> 60); eGFR For Non-African Americans > 60 (> 60)
[2017-03-14 06:44] VITALS: BP 111/75
[2017-03-14] MEDS ORDERED: Isosorbide MONOnitrate (24 HR) 30 MG TAB.ER.24H PO SCH (09:00)
[2017-03-14] MEDS: Aspirin 81 MG TAB.CHEW PO SCH (10:23)
--- NOTE | 2017-03-14 10:24 | Cardiology Progress Note ---
Date of Encounter: 03/14/17 Time of Encounter: 10:20 Assessment and Plan (1) Chest pain Current Visit: Yes Status: Acute Borderline adynamic troponin elevation. Nondiagnostic for ACS. Atypical chest pain. Chest pain resolved after 1 dose of SL NTG in ED. She reports increased stress d /t hospitalization of mother and unexpected of close friend. Hx of STEMI s/p PCI . TTE: EF 60% with normal wall motion. Recommend medical management. Continue DAPT (asa + plavix) uninterrupted for at least 1 year s/p EMRE. Resume home betablocker, continue statin and imdur. Recommend close outpatient follow-up with [facility] in 2-3 weeks--will coordinate appt. Cardiology will sign-off, please call with questions. Qualifiers: Chest pain type: precordial pain Qualified Code(s): R07.2 - Precordial pain Discussion w patient/family: The assessment and plan as outlined above was discussed with the patient and/or family members who expressed understanding and agreement. All questions were answered. Thank you for involving us in the care of your patient. Please call with any questions. The patient was discussed and reviewed with Dr. Plasencia; Cardiology will sign- off, please call with questions. Subjective Principal diagnosis: Elevated troponin Interval history: Seen and examined. Denies recurrent chest pain since x1 NTG tab administered in ED. Has been under increased stress at home d/t unexpected of friend and mother's hospitalization. Objective Vital Signs, Last 4 Hours Temp Pulse Resp BP Pulse Ox 03/14/17 06:42 97.6 F 68 16 111/75 96 General: Conversant, No Apparent Distress HEENT: Atraumatic, Normocephaly, Mucus Membranes Moist Cardiac: Reg Rate and Rhythm, Normal S1 and S2 Lungs: Normal Breath Sounds Neuro: Alert and responsive Abdomen: Soft Skin: No rashes noted on visualized skin Musculoskeletal: No Chest Wall Tenderness Extremities: No Edema, Normal Pulses Results 03/14/17 03:00 03/14/17 03:00 Lab Results 03/13/17 03/13/17 03/14/17 10:40 15:04 03:00 WBC 10.9 Hgb 11.9 Hct 35.6 Plt Count 290 APTT 57.7 H Sodium Potassium Chloride Carbon Dioxide BUN Creatinine Glucose Calcium Magnesium Troponin I 0.04 H* 03/14/17 03/14/17 03:00 03:00 WBC Hgb Hct Plt Count APTT Sodium 138 Potassium 3.3 L Chloride 105 Carbon Dioxide 24 BUN 12 Creatinine 0.62 Glucose 115 H Calcium 8.4 L Magnesium 1.7 Troponin I 0.04 H* Active Medications Acetaminophen (Tylenol) 650 mg PO Q6HR PRN PRN Reason: Mild Pain (1-3) Stop: 09/12/17 02:36 Last Admin: 03/13/17 20:00 Dose: 650 mg Aspirin (Aspirin) 81 mg PO DAILY [facility] Stop: 09/12/17 09:01 Last Admin: 03/14/17 10:23 Dose: 81 mg Clopidogrel Bisulfate (Plavix) 75 mg PO DAILY [facility] Stop: 09/12/17 09:01 Last Admin: 03/14/17 10:23 Dose: 75 mg Isosorbide Mononitrate (Imdur) 30 mg PO DAILY [facility] Stop: 09/13/17 09:01 Last Admin: 03/14/17 10:23 Dose: 30 mg Lisinopril (Zestril) 5 mg PO DAILY [facility] PRN Reason: Protocol Stop: 09/12/17 09:01 Last Admin: 03/14/17 10:23 Dose: 5 mg Naloxone HCl (Narcan) 0.4 mg IVP Q2MIN PRN PRN Reason: Opioid Reversal Stop: 09/12/17 02:36 Nitroglycerin (Nitroglycerin) 0.4 mg SL Q5MIN PRN PRN Reason: Chest Pain Stop: 09/12/17 02:41 Ondansetron HCl (Zofran) 4 mg IVP Q8HR PRN PRN Reason: Nausea And Vomiting Stop: 09/12/17 02:36 Simvastatin (Zocor) 40 mg PO HS [facility] Stop: 09/12/17 21:01 Last Admin: 03/13/17 20:00 Dose: 40 mg - Imaging and Cardiology Echo: report reviewed Other Results: Telemetry reviewed, no acute events noted. - EKG Interpretation EKG results cardiology: personally reviewed Consult Discharge Plan - Plan Referrals: Jeannette Christian MD [Primary Care Provider] -
--- NOTE | 2017-03-14 10:35 | Discharge Summary ---
Date of Encounter: 03/14/17 Time of Encounter: 10:24 - Discharge Diagnosis (1) Chest pain Priority: Primary Status: Acute Qualifiers: Chest pain type: precordial pain Qualified Code(s): R07.2 - Precordial pain (2) ST elevation myocardial infarction (STEMI) Priority: Secondary Status: Chronic Comments: recent stemi on 10/2106 Qualifiers: Involved coronary artery: LAD coronary artery Qualified Code(s): I21.02 - ST elevation (STEMI) myocardial infarction involving left anterior descending coronary artery (3) Hypertension Priority: Secondary Status: Chronic Qualifiers: Hypertension type: essential hypertension Qualified Code(s): I10 - Essential (primary) hypertension (4) Hyperlipidemia Priority: Secondary Status: Chronic Qualifiers: Hyperlipidemia type: unspecified Qualified Code(s): E78.5 - Hyperlipidemia , unspecified - Discharge Medications Prescriptions: Carvedilol [Coreg] 3.125 mg PO BIDWM #60 tablet Isosorbide MONOnitrate (24 HR) [Imdur] 30 mg PO DAILY #30 tab.er.24h Home Medications: Aspirin 81 mg PO DAILY 03/13/17 [History] Atorvastatin [Lipitor] 40 mg PO HS 03/13/17 [History] Clopidogrel [Plavix] 75 mg PO DAILY 03/13/17 [History] Lisinopril [Zestril] 5 mg PO DAILY 03/13/17 [History] Nitroglycerin 0.4 mg SL DAILY 03/13/17 [History] Carvedilol [Coreg] 3.125 mg PO BIDWM #60 tablet 03/14/17 [Rx] Isosorbide MONOnitrate (24 HR) [Imdur] 30 mg PO DAILY #30 tab.er.24h 03/14/17 [ Rx] Allergies/Adverse Reactions: Allergies codeine Allergy (Verified 03/13/17 13:59) Swelling of Lip/Tongue/Throat Sulfa (Sulfonamide Antibiotics) Allergy (Verified 03/13/17 13:59) Swelling of Lip/Tongue/Throat Procedures/tests Complete & Pending: Procedures Performed prior 72 hours Category Date Time Status ECG 12 lead ECG [ECG] Routine Y 03/13/17 01:11 Completed EV echocardiogram Routine Y 03/13/17 10:05 Completed Date of admission: 03/13/17 02:02 Primary care physician: Jeannette Christian MD Consults: 03/13/17 02:41 Consult to Cardiology [CONS] Routine Comment: Consulting Provider: [facility] Reason for Consult: Elevated troponin. S/P stent. NSTEMI? Call Completed: No 03/13/17 04:51 Consult to Manager Project [CONS] Routine Reason for SW Consult: Possibly living out of van - Patient Status Disposition: Home, Self-Care Condition: Good Functional capacity at discharge: independent ambulation Overall status at discharge: patient is progressing back to baseline - Discharge Instructions Instructions: Isosorbide Mononitrate (By mouth), Carvedilol (By mouth), Myocardial Infarction (DC), Chest Pain (GEN) Follow Up With: Jeannette Christian MD [Primary Care Provider] - 03/22/17 9:30 am Kaylah Ansari CNP [Partnered Physician] - (Please follow up in the cardiology clinic, they will call you for appointment.) Additional Instructions: Please follow up in the cardiology clinic, they will call you for appointment. - Diet and Activity Activity: resume usual activities as tolerated Diet: low fat, low cholesterol, low salt diet Interval History: patient denies any chest pain, shortness of breath or dizziness. Hospital course: Ms. Nuñez is a 42 year old female with past medical history of CAD status post PCI/EMRE on 11/07/2016 who presented with a chief complaint of chest pain. Chest oppression no acute process. Troponin were mildly elevated at 0.05 and 0.04. EKG showed no acute changes. Echocardiogram revealed LVEF 60%, mild left ventricular diastolic dysfunction. Patient was started on Imdur and Coreg. She was asymptomatic and hemodynamically stable. No telemetry events during the hospitalization. Patient reports significant stress at home due to recent hospitalization of mother and an expected that a close friend. PLAN: Follow-up in the cardiology clinic. Follow-up with primary care physician for weight loss program. - Time Spent with Patient Total time spent providing and/or coordinating discharge services: - Constitutional Vitals: Temp Pulse Resp BP Pulse Ox 97.6 F 68 16 111/75 96 03/14/17 06:42 03/14/17 06:42 03/14/17 06:42 03/14/17 06:42 03/14/17 06:42 General appearance: Present: A&O X 3, no acute distress, answers questions appropriately - Respiratory Respiratory exam: Present: CTAB - Cardiovascular Cardiovascular exam: Present: RRR - GI/Abdominal GI/Abdominal exam: Present: normal bowel sounds, soft. Absent: distended, tenderness - Extremities Exam Extremities exam: Absent: pedal edema - Back Exam Back exam: Absent: CVA tenderness (L), CVA tenderness (R) - Neurological Exam Neurological exam: Present: alert, oriented X3, no focal deficits, strengths equal and symetr throughout. Absent: facial droop, speech deficit - Skin Skin exam: Absent: rash
== END 2017-03-14 12:10 | disposition home or self-care (01) ==
LOC: EMEROO 23:16 → 3NENU 23:16 → SUATTDRO 03-13 02:35 → 3NENU 03-13 03:38 → 3BNU 03-14 08:17
PROVIDERS: ADMIT Pediatrics; ATTEND Internal Medicine